=== PATIENT | male | born 1960 | race Caucasian/White ===

== ENCOUNTER 2020-11-19 05:46 | Observation (INO) ==
--- NOTE | 2020-10-28 14:46 | PAT Medication Instructions ---
Medication Instructions Date of Service October 28, 2020 Home Medications Medication Instructions Recorded metoprolol tartrate 25 mg tablet 25 mg PO BID #180 tab 12/17/19 budesonide-formoterol HFA 160 1 puff INHALATION BID #10.2 g 10/05/20 mcg-4.5 mcg/actuation aerosol inhaler metoprolol tartrate 25 mg tablet 25 mg PO BID aspirin 81 mg tablet,delayed release 81 mg PO QAM metformin 500 mg tablet 500 mg PO BID testosterone 1.62 % transdermal gel packet 1 packet TD QPM cholecalciferol (vitamin D3) 25 mcg (1,000 unit) capsule 50 mcg PO QAM omeprazole 20 mg capsule,delayed release 20 mg PO QAM fexofenadine 180 mg tablet 180 mg PO QAM budesonide-formoterol HFA 160 mcg-4.5 mcg/actuation aerosol inhaler 1 puff INHALATION BID albuterol sulfate 1 inh INHALATION QID PRN enalapril maleate 2.5 mg PO QAM escitalopram oxalate [Lexapro] 10 mg PO QAM simvastatin 40 mg PO HS ASK your prescriber and surgeon aspirin 81 mg tablet,delayed release 81 mg PO QAM DO NOT take the morning of surgery metformin 500 mg tablet 500 mg PO BID cholecalciferol (vitamin D3) 25 mcg (1,000 unit) capsule 50 mcg PO QAM fexofenadine 180 mg tablet 180 mg PO QAM enalapril maleate 2.5 mg PO QAM Take morning of surgery With a small sip of water, OTHERWISE NOTHING TO EAT OR DRINK AFTER MIDNIGHT: metoprolol tartrate 25 mg tablet 25 mg PO BID omeprazole 20 mg capsule,delayed release 20 mg PO QAM budesonide-formoterol HFA 160 mcg-4.5 mcg/actuation aerosol inhaler 1 puff INHALATION BID albuterol sulfate 1 inh INHALATION QID PRN (if needed) escitalopram oxalate [Lexapro] 10 mg PO QAM Take evening before surgery metoprolol tartrate 25 mg tablet 25 mg PO BID metformin 500 mg tablet 500 mg PO BID testosterone 1.62 % transdermal gel packet 1 packet TD QPM budesonide-formoterol HFA 160 mcg-4.5 mcg/actuation aerosol inhaler 1 puff INHALATION BID albuterol sulfate 1 inh INHALATION QID PRN (if needed) simvastatin 40 mg PO HS Other Notes If you have any questions please call us at [phone] or [phone] or [phone] or [phone]
--- NOTE | 2020-10-29 09:37 | Anesthesiology Consultation ---
Date of Service October 29, 2020 Assessment & Plan (1) Encounter for pre-operative examination: COVID Status: As of 10/29 assessment, patient denies travel to endemic area, or symptoms of COVID19. 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 Suspects he has had 3 COVID + patient interactions in the past week alone. Preoperative COVID19 testing to be completed on 11/11 (will be 8 days prior to surgery due to holiday, and patient unable to be here before noon on 11/12). Patient will have to work between his COVID test and surgery, pt educated on importance of strict adherence to PPE. Procaine ADR = nausea/vomiting after dental procedure as a child. Chart Review Chart Review: Acceptable Risk for Surgery and Patient seen in Pre Admission Testing Teaching & Discussion Instructed NPO after midnight before surgery, except medications with 15 cc of water. Medication instructions provided according to the PAT guidelines. History Surgery Operation Date: 11/19/20 07:30 Proposed Procedures p Right Robotic Partial Nephrectomy Laparoscopic Assisted - Colton Mcclure MD Height/Weight Height: 5 ft 10 in Weight: 84 kg Allergies Allergy/AdvReac Type Severity Reaction Status Date / Time Penicillins Allergy Unknown rash Verified 10/28/20 13:13 procaine AdvReac Unknown nausea/vomi Verified 10/29/20 09:51 ting Medications Home Medications Medication Instructions Recorded Confirmed Last Taken metoprolol tartrate 25 mg tablet 25 mg PO BID #180 tab 12/17/19 10/28/20 Unknown aspirin 81 mg tablet,delayed 81 mg PO QAM tab 03/20/20 10/28/20 Unknown release metformin 500 mg tablet 500 mg PO BID #60 tab 03/20/20 10/28/20 Unknown testosterone 1.62 % (20.25 mg/1.25 1 packet TD QPM gm 03/20/20 10/28/20 Unknown gram) transdermal gel packet cholecalciferol (vitamin D3) 25 50 mcg PO QAM cap 07/06/20 10/28/20 Unknown mcg (1,000 unit) capsule omeprazole 20 mg capsule,delayed 20 mg PO QAM 07/06/20 10/28/20 Unknown release fexofenadine 180 mg tablet 180 mg PO QAM 09/04/20 10/28/20 Unknown budesonide-formoterol HFA 160 1 puff INHALATION BID #10.2 g 10/05/20 10/28/20 Unknown mcg-4.5 mcg/actuation aerosol inhaler albuterol sulfate 1 inh INHALATION QID PRN 10/28/20 10/28/20 Unknown enalapril maleate 2.5 mg PO QAM 10/28/20 10/28/20 Unknown escitalopram oxalate [Lexapro] 10 mg PO QAM 10/28/20 10/28/20 Unknown simvastatin 40 mg PO HS 10/28/20 10/28/20 Unknown Past Medical History Medical History (Updated 10/29/20 @ 10:18 by Rivera Hicks) Asthma Symbicort BID, albuterol use very rare since starting symbicort, 3x in the past few months and only with a lot of exertion. Atherosclerotic heart disease of [place] coronary artery with other forms of angina pectoris Mild LAD disease noted on 2012 heart cath Depression COVARRUBIAS (dyspnea on exertion) GERD (gastroesophageal reflux disease) Hearing deficit BL BROWN History of atypical migraine HTN (hypertension) Hyperlipidemia IBS (irritable bowel syndrome) Insomnia Osteoarthritis Prediabetes Renal mass Exercise / Class Metabolic Activity II 4-5 Yardwork/Stairs/Walk up hill (No SOB or chest pain with 1 FOS unless running, very active as a heat treat puller) Past Family History Family History Father Acute myocardial infarction Pneumonia Mother Anxiety Hyperlipidemia Hyperthyroidism Grandfather Acute myocardial infarction Aunt Progressive muscular dystrophy Grandmother Type 1 diabetes Past Surgical History Surgical History History of arthroscopy of left knee mult History of arthroscopy of right knee mult History of cardiac catheterization 2013 - [facility] - no stents/angioplasty - [place]/ [place] [facility] History of tonsillectomy Past Anesthesia History No Hx of Anesthesia Complications and No Family Hx of Anesthesia Complications History of PONV No Hx of PONV and No Hx of Motion Sickness Social History Smoking Status: Never smoker Do You Dip or Chew Tobacco: No Hx Alcohol Use: Yes Alcohol type: beer, wine and hard liquor alcohol intake frequency: a few times a week Hx Substance Use: No substance use type: does not use Review of Systems Pt denies any recent chest pain, shortness of breath, palpitations, cough, fever, URI, or uncontrolled acid reflux (controlled with PPI). Physical Exam Vital Signs BP: 114/76 P: 57bpm SPO2: 97 % RA T: 98.3 F R: 16 ENMT Mouth: + dentures (partial upper) and + chipped teeth (lower incisors); no loose teeth Thyromental Distance: < 3.5 Finger Breadths (2.5-3) Mallampati Class: II Neck neck extension not limited Respiratory normal respiratory effort, lungs clear to auscultation Cardiovascular RRR, no murmur, no edema Vessels: no carotid bruit Testing Laboratory Results Blood Type O Negative 10/29/20 09:42 Antibody Screen NEGATIVE 10/29/20 09:42 10/20/20 WBC: 5.8 H/H: 15.3/46.2 PLATELETS: 189 SODIUM: 137 POTASSIUM: 4.8 CHLORIDE: 104 CO2: 27 BUN: 26 CREATININE: 1.40 GLUCOSE: 86 UA: trace ketones, otherwise negative. Culture showed no growth after 5 days. Electrocardiogram Date: 09/04/20 Findings: + NSR @ (60bpm) Left axis deviation. Moderate voltage criteria for LVH, may be normal variant. Nonspecific ST and T wave abnormality. Chest X-Ray Date: 10/20/20 Findings: + NAD Echocardiogram Date: 12/04/15 EF: 55-60% The LV is normal in size. Mild concentric LVH. LV systolic function is normal with no regional wall motion abnormalities noted. Borderline dilated aortic root and ascending aorta (3.8 cm). Other Testing CT Angiogram 09/04/20 No evidence of PE or aortic aneurysm/dissection.3.2 cm lesion upper pole right kidney may represent a complex cyst or solid mass. Renal sonogram suggested.
[2020-11-19] MEDS ORDERED: ceFAZolin 2000MG 2,000 MG/15 ML SYR IV SCH (06:00)
[2020-11-19] MEDS ORDERED: LACTATED RINGER'S 1,000 ML IV SCH (06:00)
[2020-11-19] MEDS ORDERED: ROCURONIUM BROMIDE 10 MG/ML 5 ML VIAL IV ONE ×8 (06:49→09:51)
[2020-11-19] MEDS ORDERED: ONDANSETRON INJ 2 MG/ML 2 ML VIAL ONE (06:49)
[2020-11-19] MEDS ORDERED: HYDROmorphone INJ 2 MG/ML SYR/VIAL ONE ×2 (06:49→09:48)
[2020-11-19] MEDS ORDERED: MIDAZOLAM HCL 1 MG/ML 2ML VIAL ONE (06:49)
[2020-11-19] MEDS ORDERED: LARYING-O-JET KIT (LTA) ONE (06:49)
[2020-11-19] MEDS ORDERED: DEXAMETHASONE SOD INJ 4 MG/ML VIAL ONE (06:49)
[2020-11-19] MEDS ORDERED: LIDOCAINE 2% 2 ML VIAL/AMP(20MG/ML) INFIL ONE (06:49)
[2020-11-19] MEDS ORDERED: PHENYLEPHRINE HCL 10 MG/ML VIAL ONE (06:49)
[2020-11-19] MEDS ORDERED: PROPOFOL IV EMULSION 10 MG/ML 20 ML VIAL IV ONE (06:49)
[2020-11-19] MEDS ORDERED: GLYCOPYRROLATE 0.2 MG/ML VIAL ONE (06:50)
[2020-11-19] MEDS ORDERED: NEOSTIGMINE METHYLSULFATE 5 MG/5 ML SYR ONE ×2 (06:50→09:50)
[2020-11-19] MEDS ORDERED: BUPIVACAINE 0.5 % 5 MG/1 ML MPF 30ML VIAL ONE (07:03)
--- NOTE | 2020-11-19 07:14 | History & Physical Bridge Note ---
Date of Service November 19, 2020 History & Physical Bridge Note I have examined the patient, reviewed the History & Physical and in the interval since the performance of the History & Physical I have noted the following changes of clinical significance: no changes noted
--- NOTE | 2020-11-19 07:25 | History & Physical Report ---
Date of Service November 19, 2020 Assessment & Plan (1) Renal mass: Right renal mass - plan for right robotic partial nephrectomy - we have discussed that if partial nephrectomy is not feasible, we will convert to a radical nephrectomy - risks, benefits, and expectations discussed History of Present Illness Primary Care Provider: Neal Petty MD Incidentally discovered right upper pole/posterior renal mass - here for possible nephrectomy, possible radical nephrectomy Allergies Allergy/AdvReac Type Severity Reaction Status Date / Time Penicillins Allergy Unknown rash Verified 11/19/20 05:58 procaine AdvReac Unknown nausea/vomi Verified 11/19/20 05:58 ting Home Medications Medication Instructions Recorded Confirmed Type metoprolol tartrate 25 mg tablet 25 mg PO BID #180 tab 12/17/19 11/19/20 Rx aspirin 81 mg tablet,delayed 81 mg PO QAM tab 03/20/20 11/19/20 History release metformin 500 mg tablet 500 mg PO BID #60 tab 03/20/20 11/19/20 History testosterone 1.62 % (20.25 mg/1.25 1 packet TD QPM gm 03/20/20 11/19/20 History gram) transdermal gel packet cholecalciferol (vitamin D3) 25 50 mcg PO QAM cap 07/06/20 11/19/20 History mcg (1,000 unit) capsule omeprazole 20 mg capsule,delayed 20 mg PO QAM 07/06/20 11/19/20 History release fexofenadine 180 mg tablet 180 mg PO QAM 09/04/20 11/19/20 History budesonide-formoterol HFA 160 1 puff INHALATION BID #10.2 g 10/05/20 11/19/20 Rx mcg-4.5 mcg/actuation aerosol inhaler albuterol sulfate 1 inh INHALATION QID PRN 10/28/20 11/19/20 History enalapril maleate 2.5 mg PO QAM 10/28/20 11/19/20 History escitalopram oxalate [Lexapro] 10 mg PO QAM 10/28/20 11/19/20 History simvastatin 40 mg tablet 40 mg PO HS #90 tab 11/11/20 11/19/20 Rx Past Med/Surg History Medical History Asthma Symbicort BID, albuterol use very rare since starting symbicort, 3x in the past few months and only with a lot of exertion. Atherosclerotic heart disease of [place] coronary artery with other forms of angina pectoris Mild LAD disease noted on 2013 heart cath Depression COVARRUBIAS (dyspnea on exertion) GERD (gastroesophageal reflux disease) Hearing deficit BL BROWN History of atypical migraine HTN (hypertension) Hyperlipidemia IBS (irritable bowel syndrome) Insomnia Osteoarthritis Prediabetes Renal mass Surgical History History of arthroscopy of left knee mult History of arthroscopy of right knee mult History of cardiac catheterization [address] [facility] - no stents/angioplasty - [place] [facility] History of tonsillectomy Family History Father Acute myocardial infarction Pneumonia Mother Anxiety Hyperlipidemia Hyperthyroidism Grandfather Acute myocardial infarction Aunt Progressive muscular dystrophy Grandmother Type 1 diabetes Social History Smoking Status: Never smoker Second Hand Exposure: Yes (as a child); Do You Dip or Chew Tobacco: No; Tobacco Cessation Education Requested by Patient: No Hx Alcohol Use: Yes Alcohol type: beer, wine and hard liquor Hx Substance Use: No Preferred Language: Turkish Communication Ability: Effective Visual Impairment: Limited Hearing Ability: Use of Hearing Aid Head Of Design Required: No Beliefs That Will Affect Care: None marital status: Single Current Living Situation: Significant Other current occupational status: employed 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 [employer] Feels Safe at Home: Yes Safety Concerns: Feels Safe At This Time Childhood Exposure to Second-Hand Smoke: Yes caffeine: Yes Dental Care, Regularly: Yes Physical Activity Frequency: Daily Seatbelt Use: always Sunscreen Use: Yes Assistive Devices: Glasses and Hearing Aid - Bilateral Assistive Devices Comment: partial upper Review of Systems All systems reviewed & are unremarkable except as noted in HPI & below Physical Exam Constitutional: well developed and well nourished Neck: neck nontender Respiratory: normal respiratory effort; no respiratory distress and does not use accessory muscles Cardiovascular: Rate/Rhythm: regular rate Vessels: radial pulses present Extremities: no edema Gastrointestinal (Abdomen): Inspection/Auscultation: abdomen normal to inspection Percussion/Palpation: abdomen soft; abdomen nontender and no guarding Musculoskeletal: Head/Neck/Chest: normocephalic and head atraumatic Extremities: extremities normal to inspection Skin: no rashes and no lesions Trauma: no evidence of skin trauma Neurologic: awake; not obtunded Speech / Cognition: normal speech Motor/Sensory: no tremor Psychiatric: Orientation: alert and oriented x 3 Genitourinary: no CVA tenderness Lymphatic: no lymphadenopathy Results & Data ([facility]) Vital Signs (Past 12 Hours) Vital Signs Temp Pulse Resp BP Pulse Ox 11/19/20 06:18 36.4 C L 57 L 18 137/96 99
[2020-11-19] MEDS ORDERED: KETAMINE 50 MG/5 ML SYRINGE ONE (07:48)
[2020-11-19] MEDS ORDERED: ONDANSETRON INJ 2 MG/ML 2 ML VIAL IV PRN ×2 (08:13→14:14)
[2020-11-19] MEDS ORDERED: ATROPINE SULFATE 0.1 MG/ML 10ML SYR IV PRN (08:13)
[2020-11-19] MEDS ORDERED: HYDROmorphone INJ 1 MG/ML SYRINGE IV PRN (08:13)
[2020-11-19] MEDS ORDERED: fentaNYL citrate 100 MCG/2 ML VIAL IV PRN (08:13)
[2020-11-19] MEDS ORDERED: MEPERIDINE HCL 25 MG/ML CARP/VIAL IV PRN (08:13)
[2020-11-19] MEDS ORDERED: ePHEDrine sulfate 50 MG/ML AMP IV PRN (08:13)
[2020-11-19] MEDS ORDERED: PHENYLEPHRINE 100MCG/ML 5ML SYR IV PRN (08:13)
[2020-11-19] MEDS ORDERED: TISSEEL FIBRIN SEALANT 10ML TOP ONE (09:10)
[2020-11-19] MEDS ORDERED: FLOSEAL HEMOSTATIC MATRIX 10ML TOP ONE (09:10)
[2020-11-19] MEDS ORDERED: SURGICEL ABSORB HEMOSTAT 2IN X 14IN TOP ONE (09:10)
--- NOTE | 2020-11-19 11:13 | Operative Report ---
PG Post Operative Report Pre & Post Diagnosis Operation Date: 11/19/20 07:30 Pre-Op Diagnosis: Right Renal Mass Post-Op Diagnosis: Right Renal Mass I identified the patient and participated in the time-out.: Yes Procedure Operation Date: 11/19/20 07:30 Actual Procedures p Right Robotic Assisted Laparoscopic Radical Nephrectomy (Right) - Colton Mcclure MD Surgeon Abilio Mcclure MD Public Address System Installer Windy Ramires Estimated Blood Loss 25 Findings Consistent with Post-Op Diagnosis Specimens Right kidney Description of Procedure Patient was identified in the preoperative holding area, appropriate informed consents reviewed and completed and he was transported to the operating suite. Upon arrival he received appropriate preoperative antibiotics in the form of Ancef. He was placed in the left side down right side up lateral decubitus position and padded and braced in standard fashion. To begin the case I passed a Veress needle into the right upper quadrant and insufflated his abdomen to 15 mmHg. I then placed a subumbilical port12 mm Visiport utilizing a 0 degree laparoscope. Inspection revealed a healthy- appearing abdomen without any significant adhesive disease aside from some minor adhesions around the cecum. I placed an 8mm robotic port approximately 2 cm above the umbilicus and just lateral to the rectus border. Utilizing the 2 ports that were placed I did mobilize the adhesions from the cecum. I then proceeded to place 2 additional robotic ports, one approximately 8 cm cephalad and one approximately 8 cm caudal to the first robotic port. A 5 mm subxiphoid liver retraction port was placed as well. The robot was docked into begin the robotic portion of the case I incised the white line of [place] and started to medialize the colon. I immediately identified the duodenum which was kocherized. The IVC was visualized. Before continuing to dissect the vascular structures like mobilized the liver which had adhesive disease on the lateral border and on the inferior edge. He does have 1 liver hemangioma which was visualized. After him incising these adhesions I utilized my previously placed 5 mm liver retraction port to place a locking grasper and elevate the liver off of the kidney. I then turned my attention back to the IVC. I was able to identify the gonadal vein penetrating into the IVC just inferior to the location of the renal vein. I circumferentially dissected the renal vein and identified the renal artery immediately posterior to it. Of note there is a branch that protrudes anteriorly from the artery wrapping around the cephalad portion of the renal vein. This was entirely dissected. The posterior plane behind the kidney was entirely dissected elevating the kidney off of the underlying psoas muscle. Given the location of the tumor I then started to mobilize the lateral aspect of the kidney and superior aspect of the kidney. This initially was performed outside of Gerota's fascia but then I incised Gerota's fascia over the medial and anterior portion of the kidney. Fortunately the fat was not adherent to the underlying renal capsule and I was able to expose the entire anterior superior half of the kidney. As I continue to mobilize around the upper portion of the kidney I can identify the border of the renal mass. This came in close p roximity to the renal vasculature. I felt that further dissection of the kidney would be required before making a determination about feasibility of performing a partial nephrectomy versus radical nephrectomy. I in turn skeletonized the entire kidney removing all of Gerota's fascia. I was able to flip the kidney entirely so that I could visualize the posterior side of the kidney and hilar structures from the posterior. The mass was readily visible from both anterior and posterior approaches, the mass unfortunately abuts the renal vasculature and I felt that it was unsafe to perform a partial nephrectomy as I did not anticipate having adequate tissue remaining to be able to close the kidney. I did perform a laparoscopic ultrasound to confirm this. After this evaluation I elected to proceed with a radical nephrectomy as I had discussed with the patient was a possibility prior to surgery. A single staple load was utilized to control both artery and vein. There were no other remaining attachments of the kidney and I was able to remove the previously mobilized Gerota's fascia in addition to the kidney. These were removed through expansion of my lowest robotic port to approximately 8 cm. Hemostasis was excellent. Closure of the incisions occurred in multiple layers. Utilizing 0 Vicryl I reapproximated the transversalis followed by internal oblique followed by external oblique. The subumbilical port was closed with 0 Vicryl. All skin incisions were closed with 4-0 Monocryl and Dermabond. All incisions were infiltrated with half percent Marcaine. He was subsequently extubated and taken to the recovery room in stable condition. The kidney was passed off the table for pathological analysis. Windy Ramires assisted from incision to closure. There were no complications. I attest to the content of the Intraoperative Record and any orders documented therein. Any exceptions are noted below.
[2020-11-19 11:27] LABS: Basophils # (auto) 0.02 K/uL (0-0.2); Basophils % (auto) 0.2 %; Eosinophils # (auto) 0.15 K/uL (0-0.5); Eosinophils % (auto) 1.4 %; Hematocrit (blood only) 42.3 % (42-52); Hemoglobin 13.7 g/dL (14.0-18.0); Immature Granulocytes # (auto) 0.02 K/uL (0.00-0.02); Immature Granulocytes % (auto) 0.2 %; Lymphocytes # (auto) 2.02 K/uL (1.2-3.4); Mean Corpuscular Hemoglobin 32.2 pg (25-34); Mean Corpuscular Volume 99.3 fL (80-100); Mean Platelet Volume 10.7 fL (7.4-10.4); Monocytes # (auto) 0.45 K/uL (0.11-0.59); Monocytes % (auto) 4.2 %; Neutrophils # (auto) 7.95 K/uL (1.4-6.5); Platelet Count 230 K/uL (130-400); RDW Coefficient of Variation 14.5 % (11.5-14.5); RDW Standard Deviation 52.1 fL (36.4-46.3); Red Blood Count 4.26 M/uL (4.7-6.1); White Blood Count 10.61 K/uL (4.8-10.8)
[2020-11-19 11:28] LABS: Mean Corpuscular Hgb Conc 32.4 g/dL (32-36)
[2020-11-19 11:44] LABS: BUN Creatinine Ratio 13.2 (10-20); Calcium 8.5 mg/dl (8.5-10.1); Creatinine Clr Calc Pharmacy 59.9 ml/min; Est GFR (African American) 66.5; Est GFR (Non-African American) 57.4; Potassium 5.2 mmol/L (3.5-5.1)
--- NOTE | 2020-11-19 12:32 | Anesthesiology Progress Note ---
Date of Service November 19, 2020 Anesthesia Post Procedure Vital Signs Vital Signs: Temp Pulse Pulse Resp BP Pulse Ox 11/19/20 12:25 36.7 C 83 15 131/79 95 11/19/20 12:15 81 12 125/77 98 11/19/20 12:05 82 12 106/64 100 11/19/20 11:55 36.7 C 69 12 114/70 98 11/19/20 11:45 67 12 106/70 98 11/19/20 11:35 67 12 112/71 98 11/19/20 11:25 68 12 123/71 98 11/19/20 11:15 69 18 119/71 98 11/19/20 11:05 66 12 120/64 93 11/19/20 10:57 36.3 C L 62 13 114/58 L 99 11/19/20 06:18 36.4 C L 57 L 18 137/96 99 Transfer of Care Handoff Completed per policy Notes Mental Status: alert / awake / arousable Patient Amnestic to Procedure: Yes Nausea / Vomiting: adequately controlled Pain: adequately controlled Airway Patency, RR, SpO2: stable & adequate BP & HR: stable & adequate Hydration State: stable & adequate Anesthetic Complications: no major complications apparent and Pt Satisfied with anesthetic care
[2020-11-19] MEDS ORDERED: MoRPHine SULFATE 2 MG/ML CARP IV PRN (14:14)
[2020-11-19] MEDS ORDERED: ALBUTEROL HFA 8 GM INHALER INH PRN (14:14)
[2020-11-19] MEDS ORDERED: ACETAMINOPHEN 325 MG TAB PO PRN (14:14)
[2020-11-19] MEDS ORDERED: PHARMACY GLYCEMIC MGMT CONSULT PRN (14:23)
[2020-11-19] MEDS: LACTATED RINGER'S 1,000 ML IV SCH ×2 (14:33→21:03)
[2020-11-19] MEDS: MoRPHine SULFATE 2 MG/ML CARP IV PRN (14:34)
--- NOTE | 2020-11-19 15:27 | Pharmacy Report ---
Glycemic Control Consultation - Date of Service November 19, 2020 - Scope Scope: Glycemic Pharmacist consulted for glycemic control and to write orders per [facility] inpatient glycemic control protocol. - Objective Weight: 83.2 kg Accuchecks BSG (last 24hrs): 11/19/20 11:12 Glucose 127 H Laboratory Data (last 24hrs): 11/19/20 11:12 Potassium 5.2 H Carbon Dioxide 31 Anion Gap 2.0 L Creatinine 1.32 Est Cr Clr Drug Dosing 59.9 - Recent Pertinent Medications Outpatient Anti-diabetic Regimen: * metformin 500 mg BID * A1c = 6.3 % 02/24/2016 Risk Factors for Insulin Resistance: * Steroids: dexamethasone 8 mg intraop * Recent Surgery: POD 0 for nephrectomy * Diet: clear liquid - Assessment & Plan Assessment & Plan: ASSESSMENT: * Mr Pelayo is a 60 y/o M with a PMH of T2DM on one oral medication who presents for nephrectomy. Preop BSG was 127 mg/dL. * Patient received dexamethasone 8 mg IV intraop. * Give NPH 25 units (weight-based stress of 2) x 1 -- slightly less than 0.4 units/kg to cover steroid hyperglycemia. * Start weight-based stress of 3 Novolog. Overnight checks to ensure adequate BSG control. * Hold metformin in light of surgery. * HbA1C ordered. PLAN FOR INPATIENT GLYCEMIC CONTROL: * Holding outpatient oral diabetes medications * Basal insulin * NPH 25 units SQ x 1 * Bolus insulin * NovoLog per scale ACHS or Q6hrs while NPO * Goal Range: Low 110 mg/dL - High 140 mg/dL * Correction Factor: 20 mg/dL/unit * Nutritional / Prandial insulin per carb ratio of 1 unit per 6 grams CHO consumed * Please note that the plan above was derived based on current level of insulin resistance and hospital stress. These recommendations are appropriate for inpatient admission only. Plan of care upon discharge will need to be reassessed to avoid potential outpatient hypo/hyperglycemia. Thank you.
[2020-11-19] MEDS ORDERED: GLUCAGON FOR INJ 1 MG VIAL IM PRN (15:30)
[2020-11-19] MEDS ORDERED: GLUCOSE 40% GEL 15 GM TUBE PO PRN (15:30)
[2020-11-19] MEDS ORDERED: CARBOHYDRATES FOR HYPOGLYCEMIA PO PRN (15:30)
[2020-11-19] MEDS ORDERED: DEXTROSE 50% 50 ML SYRINGE IV PRN (15:30)
[2020-11-19] MEDS ORDERED: GLUCOSE 10 TABS/TUBE PO PRN (15:30)
[2020-11-19] MEDS: oxyCODONE HCL IR 5 MG TAB (IMMEDIATE RELEASE) PO PRN ×2 (16:10→19:41)
[2020-11-19] MEDS: ceFAZolin 2000MG 2,000 MG/15 ML SYR IV SCH (16:10)
[2020-11-19] MEDS ORDERED: NovoLIN-N (NPH) PER UNIT CHARGE SQ ONE (16:30)
[2020-11-19] MEDS: INSULIN ASPART 100 UNITS/ML 3 ML PEN SC SCH ×2 (18:05→21:00)
[2020-11-19] MEDS: HEPARIN SOD 5,000 UNIT/0.5 ML VIAL SQ SCH (20:59)
[2020-11-19] MEDS: SIMVASTATIN 40 MG TAB PO SCH (20:59)
[2020-11-19] MEDS: METOPROLOL TARTRATE 25 MG TAB PO SCH (20:59)
[2020-11-20] MEDS: ceFAZolin 2000MG 2,000 MG/15 ML SYR IV SCH (00:04)
[2020-11-20] MEDS: oxyCODONE HCL IR 5 MG TAB (IMMEDIATE RELEASE) PO PRN ×4 (00:07→19:28)
[2020-11-20] MEDS: DICLOFENAC SOD 0.1% OPH SOLN 2.5 ML BTL OPR PRN ×2 (00:15→07:54)
[2020-11-20] MEDS: LACTATED RINGER'S 1,000 ML IV SCH ×3 (00:49→17:51)
[2020-11-20] MEDS: INSULIN ASPART 100 UNITS/ML 3 ML PEN SC SCH ×6 (00:50→21:22)
[2020-11-20 07:18] LABS: Hematocrit (blood only) 37.9 % (42-52); Immature Granulocytes # (auto) 0.02 K/uL (0.00-0.02); Immature Granulocytes % (auto) 0.2 %; Lymphocytes % (auto) 7.9 %; Mean Corpuscular Hemoglobin 31.3 pg (25-34); Mean Corpuscular Hgb Conc 31.7 g/dL (32-36); Mean Platelet Volume 10.7 fL (7.4-10.4); Monocytes # (auto) 1.31 K/uL (0.11-0.59); Monocytes % (auto) 10.4 %; Neutrophils # (auto) 10.29 K/uL (1.4-6.5); Neutrophils % (auto) 81.5 %; Platelet Count 223 K/uL (130-400); RDW Coefficient of Variation 14.8 % (11.5-14.5); Red Blood Count 3.83 M/uL (4.7-6.1); White Blood Count 12.62 K/uL (4.8-10.8)
[2020-11-20 07:43] LABS: BUN Creatinine Ratio 12.4 (10-20); Calcium 8.9 mg/dl (8.5-10.1); Creatinine Clr Calc Pharmacy 41.4 ml/min; Est GFR (African American) 42.6; Est GFR (Non-African American) 36.7; Potassium 4.8 mmol/L (3.5-5.1)
[2020-11-20] MEDS: METOPROLOL TARTRATE 25 MG TAB PO SCH ×2 (07:54→19:31)
[2020-11-20] MEDS: FEXOFENADINE HCL 180 MG TAB PO SCH (07:55)
[2020-11-20] MEDS: ENALAPRIL MALEATE 5 MG TAB PO SCH (07:55)
[2020-11-20] MEDS: ESCITALOPRAM OXALATE 10 MG TAB PO SCH (07:56)
[2020-11-20] MEDS: CHOLECALCIFEROL 1,000 UNITS 25 MCG TAB PO SCH (07:56)
[2020-11-20] MEDS: HEPARIN SOD 5,000 UNIT/0.5 ML VIAL SQ SCH ×2 (07:56→19:31)
[2020-11-20] MEDS: ASPIRIN 81 MG ECTAB PO SCH (07:56)
[2020-11-20] MEDS: PANTOprazole 40 MG TAB PO SCH (07:56)
[2020-11-20] MEDS: FLUTICASONE/VILANTEROL 100/25MCG 14 PUFFS/INHALER INH SCH (07:57)
--- NOTE | 2020-11-20 13:27 | Urology Progress Note ---
Date of Service November 20, 2020 Assessment & Plan (1) Renal mass: POD1 s/p Radical Right nephrectomy for Right renal mass Advancing diet. Encouraging ambulation as well as IS. Patient having discomfort in back and shoulders and right upper quadrant. No other major issues. No BM/Flatus. Improving clinically. Plan to continue to monitor. Possibly discharge tomorrow if continues to improve. Admission and Anticipated Discharge Date Admission Date: November 19, 2020 Subjective Postop from urologic surgery. Patient has been tolerating well, but is having some pain and discomfort. Incisions have been mild sore. Having some abdominal distension/gas pains. Had tolerated catheter overnight. Has not had severe pain or uncontrollable pain. Patient has been ambulating. Has not had bowel movement or major change. No new nausea or vomiting. Had tolerated anesthesia without major problems Tolerated liquid diet postoperatively and advanced for lunch. Review of Systems Review of Systems: All systems reviewed & are unremarkable except as noted in HPI & below Physical Exam Physical Exam: General: Alert in no acute distress. HEENT: Normocephalic Atraumatic. Inspection normal. Cranial Nerves 2-12 Grossly intact. Normal inspection of face. Normal inspection of neck. Psychologic: Normal affect. Respiratory: Nonlabored. No use of accessory muscles. No tachypnea or dyspnea. Cardiovascular: No tachycardia Skin: [place] and Dry. No rashes or visible lesions. Extremities/Lymphatics: No edema Abdomen: Appropriately tender. Mild distended. No rebound or guarding. Wound: Clean, dry, covered. Results & Data ([facility]) Vital Signs (Past 12 Hours) Vital Signs Temp Pulse Resp BP Pulse Ox 11/20/20 11:42 36.9 C 67 16 127/81 92 11/20/20 07:45 37.0 C 70 16 120/75 95 11/20/20 02:57 36.7 C 72 18 108/64 92 PG Care Time/CCT Total # of Minutes Spent Total Time Spent with Patient: Total time spent is greater than 50% in coordination of care (as documented) at patient's floor/unit and/or counseling patient: Coding Level of Care Code 00705 Subseq Obs Care Lvl 2 Diagnoses Renal mass N28.89
[2020-11-20] MEDS: MoRPHine SULFATE 2 MG/ML CARP IV PRN ×2 (15:27→21:21)
--- NOTE | 2020-11-20 15:36 | Pharmacy Report ---
Pharmacy Glycemic Short Note 2 - Date of Service November 20, 2020 - Glycemic Short BSG Results (Last 24 hours): 11/19/20 11/19/20 11/20/20 17:28 20:46 00:04 Glucose POC Glucose 175 H 159 H 132 H 11/20/20 11/20/20 11/20/20 05:08 06:51 08:26 Glucose 94 POC Glucose 94 107 H 11/20/20 12:11 Glucose POC Glucose 96 OUTPATIENT ANTIDIABETIC REGIMEN: * metformin 500 mg BID * A1c = 6.3 % 02/24/2016 ASSESSMENT: * Renard is POD #1 s/p nephrectomy. He received 34 units of insulin yesterday (25 units of NPH, 9 units of Novolog) with excellent glycemic control. He received a one time dose of ross-op dexamethasone. * His insulin needs decreased significantly today since no further steroids have been given. * no further basal insulin needed * loosen novolog CF and CR PLAN FOR INPATIENT GLYCEMIC CONTROL: * Hold outpatient oral diabetes medications * Basal insulin * none * Bolus insulin * NovoLog per scale ACHS or Q6hrs while NPO * Goal Range: Low 110 mg/dL - High 140 mg/dL * Correction Factor: 25 mg/dL/unit * Nutritional / Prandial insulin per carb ratio of 1 unit per 10 grams CHO consumed
[2020-11-20] MEDS: SIMVASTATIN 40 MG TAB PO SCH (19:32)
[2020-11-21] MEDS: LACTATED RINGER'S 1,000 ML IV SCH (03:50)
[2020-11-21 05:57] LABS: Basophils # (auto) 0.02 K/uL (0-0.2); Basophils % (auto) 0.2 %; Eosinophils # (auto) 0.09 K/uL (0-0.5); Eosinophils % (auto) 1.1 %; Hematocrit (blood only) 33.3 % (42-52); Hemoglobin 10.8 g/dL (14.0-18.0); Immature Granulocytes # (auto) 0.01 K/uL (0.00-0.02); Immature Granulocytes % (auto) 0.1 %; Lymphocytes # (auto) 1.49 K/uL (1.2-3.4); Lymphocytes % (auto) 18.5 %; Mean Corpuscular Hgb Conc 32.4 g/dL (32-36); Mean Corpuscular Volume 98.8 fL (80-100); Mean Platelet Volume 10.5 fL (7.4-10.4); Monocytes # (auto) 0.92 K/uL (0.11-0.59); Monocytes % (auto) 11.4 %; Neutrophils # (auto) 5.52 K/uL (1.4-6.5); Neutrophils % (auto) 68.7 %; Platelet Count 190 K/uL (130-400); RDW Standard Deviation 54.3 fL (36.4-46.3); Red Blood Count 3.37 M/uL (4.7-6.1); White Blood Count 8.05 K/uL (4.8-10.8)
[2020-11-21 05:59] LABS: Estimated Average Glucose 131 mg/dl; Hemoglobin A1C 6.2 % (4.5-5.6)
[2020-11-21 06:27] LABS: BUN Creatinine Ratio 12.4 (10-20); Calcium 8.5 mg/dl (8.5-10.1); Est GFR (African American) 39.5; Est GFR (Non-African American) 34.1; Potassium 4.3 mmol/L (3.5-5.1)
[2020-11-21 08:00] VITALS: BP 148/88; PULSE 70; TEMP 97.9; O2SAT 95
[2020-11-21] MEDS: ENALAPRIL MALEATE 5 MG TAB PO SCH (09:42)
[2020-11-21] MEDS: FEXOFENADINE HCL 180 MG TAB PO SCH (09:42)
[2020-11-21] MEDS: PANTOprazole 40 MG TAB PO SCH (09:43)
[2020-11-21] MEDS: ASPIRIN 81 MG ECTAB PO SCH (09:43)
[2020-11-21] MEDS: METOPROLOL TARTRATE 25 MG TAB PO SCH (09:43)
[2020-11-21] MEDS: CHOLECALCIFEROL 1,000 UNITS 25 MCG TAB PO SCH (09:43)
[2020-11-21] MEDS: ESCITALOPRAM OXALATE 10 MG TAB PO SCH (09:43)
[2020-11-21] MEDS: HEPARIN SOD 5,000 UNIT/0.5 ML VIAL SQ SCH (09:44)
[2020-11-21] MEDS: INSULIN ASPART 100 UNITS/ML 3 ML PEN SC SCH (09:44)
[2020-11-21] MEDS: FLUTICASONE/VILANTEROL 100/25MCG 14 PUFFS/INHALER INH SCH (09:44)
--- NOTE | 2020-11-21 10:39 | Urology Progress Note ---
Date of Service November 21, 2020 Assessment & Plan (1) Renal mass: POD2 s/p Radical Right nephrectomy for Right renal mass Discussed diet. Encourage small frequent meals and hydration. Encouraging ambulation as well as IS. Patient having discomfort in back and shoulders and right upper quadrant. No other major issues. No BM/Flatus. Improving clinically. Plan to continue to monitor. Admission and Anticipated Discharge Date Admission Date: November 19, 2020 Subjective Postop day 2 from robotic urologic surgery. Patient has been tolerating well, but is having some pain and discomfort. Incisions have been mild sore. Having some abdominal distension/gas pains. Has not had severe pain or uncontrollable pain. Patient has been ambulating. Has not had bowel movement or major change. No new nausea or vomiting. Had tolerated anesthesia without major problems Tolerating small diet Review of Systems Review of Systems: All systems reviewed & are unremarkable except as noted in HPI & below Physical Exam Physical Exam: General: Alert in no acute distress. HEENT: Normocephalic Atraumatic. Inspection normal. Cranial Nerves 2-12 Grossly intact. Normal inspection of face. Normal inspection of neck. Psychologic: Normal affect. Respiratory: Nonlabored. No use of accessory muscles. No tachypnea or dyspnea. Cardiovascular: No tachycardia Skin: [place] and Dry. No rashes or visible lesions. Extremities/Lymphatics: No edema Abdomen: Appropriately tender. Mild distended. No rebound or guarding. Wound: Clean, dry, covered. Results & Data ([facility]) Vital Signs (Past 12 Hours) Vital Signs Temp Pulse Resp BP Pulse Ox 11/21/20 07:59 36.6 C 70 16 148/88 H 95 11/20/20 23:55 37.1 C 76 17 130/79 92 PG Care Time/CCT Total # of Minutes Spent Total Time Spent with Patient: Total time spent is greater than 50% in coordination of care (as documented) at patient's floor/unit and/or counseling patient: Coding Level of Care Code 42966 Subseq Hosp Care Lvl 2 Diagnoses Renal mass N28.89
[2020-11-21] MEDS: oxyCODONE HCL IR 5 MG TAB (IMMEDIATE RELEASE) PO PRN (12:44)
--- NOTE | 2020-11-23 08:49 | Discharge Summary ---
Date of Service November 23, 2020 Admission HPI Per Admitting Provider Incidentally discovered right upper pole/posterior renal mass - here for possible nephrectomy, possible radical nephrectomy Principal Diagnosis Renal mass Discharge Data Allergies Allergy/AdvReac Type Severity Reaction Status Date / Time Penicillins Allergy Unknown rash Verified 11/19/20 05:58 procaine AdvReac Unknown nausea/vomi Verified 11/19/20 05:58 ting Procedures Performed Operation Date: 11/19/20 07:30 Actual Procedures p Right Robotic Assisted Laparoscopic Radical Nephrectomy (Right) - Colton Mcclure MD Hospital Course (1) Renal mass: Admitted for surgical treatment of a right renal mass Details of the procedure as dictated previously in the operative report. In summary, he recovered appropriately. His Mena catheter was removed on the morning of day 1. He was ambulatory. His diet was advanced. Labs were all appropriate and he was discharged home in stable condition on the morning of postoperative day #2 Total Time Total Time Spent Total Time Spent (In Minutes): 15 Discharge Plan Discharge Items Patient Disposition: Home - Self-Care Reason For Visit: Right Renal Mass Discharge Diagnosis: Same Condition on Discharge: Good Activity: Per Instructions section Lifting: No more than 25 pounds Bathing Comment: Okay to shower. No baths/soaking Non-emergency contact: Urologist Call non-emergency contact if: you have any medication questions, your symptoms worsen, your pain is not controlled, your pain is worsening, your pain is unusual for you, your pain is concerning for you, you have a fever, your temperature is above 101.5, your wound has increased redness, your wound has increased drainage and your wound pain has increased Follow-up/Referrals: Neal Petty MD [Primary Care Provider] - Diet: Regular Addtl Attending Provider Instructions: Please take all medications as prescribed and keep follow-ups as scheduled. Please call our office at [phone] with any questions, concerns or need to reschedule appointments for any reason. We are happy to assist you. Please do not drive, drink alcohol or operate machinery while taking prescription pain medication. We recommend continuing a stool softener (i.e. Colace) to prevent constipation/straining for at least two weeks after your procedure. Some blood is to be expected in your urine as you heal, you may even see recurrences of blood in your urine for up to 4-6 months after your procedure. Drink plenty of fluids, avoid sexual or strenuous exercise and do not lift >25 pounds until your follow-up. No heavy lifting. Slowly increase activity. Walking and low impact activities are encouraged. Call [facility] at [phone] promptly if you experience: Fever of 101F or greater Pain thats not controlled with medicine Trouble urinating or inability to urinate Dark, bloody urine for more than 12 hours Pending Studies at Discharge: No Stand-Alone Forms: My [facility], Smoking Cessation Medications and DC Order Prescriptions: New oxycodone-acetaminophen [Percocet] 7.5-325 mg tablet 1 tab PO Q8H PRN (Reason: pain) Qty: 7 RF: 0 docusate sodium 100 mg capsule 100 mg PO BID Qty: 30 RF: 3 Continued metoprolol tartrate 25 mg tablet 25 mg PO BID Qty: 180 RF: 3 simvastatin 40 mg tablet 40 mg PO HS Qty: 90 RF: 3 testosterone 1.62 % (20.25 mg/1.25 gram) gel in packet 1 packet TD QPM RF: 0 aspirin 81 mg tablet,delayed release (DR/EC) 81 mg PO QAM RF: 0 metformin 500 mg tablet 500 mg PO BID Qty: 60 RF: 0 cholecalciferol (vitamin D3) 25 mcg (1,000 unit) capsule 50 mcg PO QAM RF: 0 omeprazole 20 mg capsule,delayed release(DR/EC) 20 mg PO QAM RF: 0 budesonide-formoterol [Symbicort] 160-4.5 mcg/actuation HFA aerosol inhaler 1 puff inhalation BID Qty: 10.2 RF: 0 fexofenadine 180 mg tablet 180 mg PO QAM RF: 0 albuterol sulfate 90 mcg/actuation Hfa Aerosol Inhaler 1 inh INHALATION QID PRN (Reason: sob) RF: 0 enalapril maleate 2.5 mg tablet 2.5 mg PO QAM RF: 0 escitalopram oxalate [Lexapro] 10 mg tablet 10 mg PO QAM RF: 0 Discharge Orders: Discharge Order (Routine); Ordered 11/21/20 Ordered By: Jaren Conn/Other Patient Handouts: Managing Type 2 Diabetes Admission Data Admit Date/Time: 11/19/20 11:04 Attending Provider: Colton Mcclure Admit Provider: Colton Mcclure Primary Care Provider: Neal Petty Other Interventions: Discharge Summary Assessment (RN) Last Done: 11/21/20 11:58 Coding Level of Care Code D/C Day Management <30 mins Diagnoses Renal mass N28.89
== END 2020-11-21 13:32 | disposition home or self-care (01) ==
LOC: ASU 05:46 → 3N 11:04 → INTOOBSV 11:04

== ENCOUNTER 2022-04-20 20:20 | Inpatient (IN) ==
--- NOTE | 2022-04-20 21:48 | Emergency Department Note ---
History of Present Illness General Chief complaint: Mental Health Evaluation Stated complaint: DEPRESSION Time Seen by Provider: 04/20/22 21:01 History of Present Illness Provider complaint: Mental health evaluation 61-year-old male presents emergency department for mental health evaluation. Patient reports he has been having increased anxiety and depression. He states that in July he lost his friend in a car accident and he was still responding. Patient states since then he has been having increasing anxiety and depression. 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 Patient was having suicidal ideation and driving recklessly. No access to any firearms. No drugs or alcohol. Home Medications Medication Instructions Recorded Confirmed Type aspirin 81 mg tablet,delayed 81 mg PO QAM tab 03/20/20 04/20/22 History release cholecalciferol (vitamin D3) 25 50 mcg PO QAM cap 07/06/20 04/20/22 History mcg (1,000 unit) capsule omeprazole 20 mg capsule,delayed 20 mg PO QAM 07/06/20 04/20/22 History release fexofenadine 180 mg tablet 180 mg PO QAM 09/04/20 04/20/22 History budesonide-formoterol HFA 160 1 puff INHALATION BID #10.2 g 10/05/20 04/20/22 Rx mcg-4.5 mcg/actuation aerosol inhaler (Symbicort) albuterol sulfate 90 mcg/actuation 1 inh INHALATION QID PRN 10/28/20 04/20/22 History aerosol inhaler testosterone 20.25 mg/1.25 gram 1 pump TOPICAL DAILY 01/04/21 04/20/22 History (1.62 %) transdermal gel pump (AndroGel) colchicine 0.6 mg tablet 0.6 mg PO BID PRN #30 tab 10/05/21 04/20/22 Rx atorvastatin 40 mg tablet 40 mg PO DAILY #90 tab 11/10/21 04/20/22 Rx metoprolol tartrate 25 mg tablet See Rx Instructions .ROUTE 01/10/22 04/20/22 Rx .COMPLEX #180 tab dutasteride 0.5 mg capsule 0.5 mg PO DAILY #90 cap 02/18/22 04/20/22 Rx tamsulosin 0.4 mg capsule 0.4 mg PO DAILY #90 cap 02/18/22 04/20/22 Rx calcitriol 0.25 mcg capsule 0.25 mcg PO .COMPLEX #24 cap 03/08/22 04/20/22 Rx escitalopram oxalate 10 mg tablet 15 mg PO DAILY #135 tab 04/20/22 04/20/22 Rx Allergies Allergy/AdvReac Type Severity Reaction Status Date / Time Penicillins Allergy Unknown rash Verified 04/20/22 16:51 procaine AdvReac Unknown nausea/vomi Verified 04/20/22 16:51 ting Past Med/Surg History Medical History Asthma Symbicort BID, albuterol use very rare since starting symbicort, 3x in the past few months and only with a lot of exertion. Atherosclerotic heart disease of [place] coronary artery with other forms of angina pectoris Mild LAD disease noted on 2013 heart cath Depression GERD (gastroesophageal reflux disease) Hearing deficit [place] History of atypical migraine HTN (hypertension) Hyperlipidemia IBS (irritable bowel syndrome) Insomnia Osteoarthritis Renal mass Surgical History History of arthroscopy of left knee mult History of arthroscopy of right knee mult History of cardiac catheterization 2013 - [facility] - no stents/angioplasty - follows w/ [place] cardio History of kidney surgery History of tonsillectomy Family History Father Acute myocardial infarction Pneumonia Myocardial infarction Mother Anxiety Hyperlipidemia Hyperthyroidism Grandfather Acute myocardial infarction Myocardial infarction Aunt Progressive muscular dystrophy Grandmother Type 1 diabetes Denies family history of Ovarian cancer Prostate cancer Breast cancer Lung cancer Colorectal cancer Stroke Social History Smoking Status: Never smoker Second Hand Exposure: Yes (as a child); Hx Alcohol Use: Yes Alcohol type: beer, wine and hard liquor Alcohol Intake Frequency: 2-3 x/Week Hx Substance Use: No Preferred Language: Italian Communication Ability: Effective Visual Impairment: Limited Hearing Ability: Use of Hearing Aid Film Writer Required: No Beliefs That Will Affect Care: None marital status: Single Current Living Situation: Significant Other current occupational status: employed current occupation: [employer] How many Children do You have: 0 Feels Safe at Home: Yes Childhood Exposure to Second-Hand Smoke: Yes caffeine: Yes Dental Care, Regularly: Yes Physical Activity Frequency: Daily Seatbelt Use: always Sunscreen Use: Yes Assistive Devices: Glasses Review of Systems A total of 10 systems reviewed and were otherwise negative Physical Exam Vital Signs Vital Signs - 24 hr 04/20/22 20:26 04/20/22 22:21 04/21/22 00:19 Temperature 36.3 C L Temperature Source Temporal Artery Scan Pulse Rate 73 Pulse Rate [Left] 52 L Respiratory Rate 16 20 Respiratory Effort / Characteristics Non-Labored Spontaneous Non-Labored Non-Labored Respiratory Depth Normal Normal Normal Blood Pressure 152/91 H Blood Pressure [Left Arm] 125/76 Blood Pressure Mean 111 Blood Pressure Mean [Left Arm] 92 Pulse Oximetry 98 96 Oxygen Delivery Method Room Air Room Air Sepsis Recent Fever Within 48 Hours No Sepsis New/Unexplained Change in Mental Status No Sepsis Action Taken by Nursing No Action Required Physical Exam GENERAL: He is oriented to person, place, and time. He appears well-developed and well-nourished. He does not appear distressed. HENT: Exam performed. - Head: Normocephalic and atraumatic. - Right Ear: External ear normal. No mastoid tenderness. - Left Ear: External ear normal. No mastoid tenderness. - Mouth/Throat: The oropharynx is clear and moist. No trismus in the jaw. No dental abscesses or uvula swelling. No oropharyngeal exudate or tonsillar abscesses. EYES: Conjunctivae and EOM are normal. Pupils are equal, round, and reactive to light. Right eye exhibits no discharge. Left eye exhibits no discharge. No scleral icterus. NECK: Normal range of motion. Neck supple. No JVD present. No spinous process tenderness present. No carotid bruit present. No rigidity. No tracheal deviation and normal range of motion present. No Brudzinski's sign and no Kernig's sign noted. CV: Normal rate, regular rhythm, normal heart sounds and intact distal pulses. There is no peripheral edema. Palpable radial pulses bue. PULM/CHEST: Effort normal and breath sounds normal. No respiratory distress. No stridor. He has no wheezes. He has no rales. - Chest Wall: He exhibits no tenderness. ABD: The abdomen is soft. Bowel sounds are normal. He has no distension. No mass is present. There is no tenderness. There is no rebound, no guarding, no Pena's sign and no tenderness at McBurney's point. Rovsig negative. MUSC/SKEL: Normal range of motion. There is no peripheral edema, tenderness or deformity. LYMPH: No cervical adenopathy. NEURO: He is alert and oriented to person, place, and time. He has normal strength. No cranial nerve deficit or sensory deficit. Coordination and gait normal. GCS eye subscore is 4. GCS verbal subscore is 5. GCS motor subscore is 6. Cerebellar tests wnl. SKIN: Skin is warm and dry. He is not diaphoretic. PSYCH: Patient appears anxious and depressed. Positive suicidal ideation. Course Course 2100: The patient was evaluated in room A8. A complete history and physical exam was performed 2299: Vital signs stable. Patient medically cleared. Awaiting psychiatric placement. Patient placement for patient at this time. 0: Vital signs stable. Still awaiting placement to inpatient psychiatric facility. Case signed out to Dr. Toribio Medical Decision Making Laboratory Data Result diagrams: 04/20/22 21:27 04/20/22 21:27 Lab Results 04/20/22 04/20/22 04/20/22 Range/Units 21:27 21:27 21:27 WBC 6.26 (4.8-10.8) K/uL RBC 4.10 L (4.7-6.1) M/uL Hgb 13.2 L (14.0-18.0) g/dL Hct 40.3 L (42-52) % MCV 98.3 (80-100) fL MCH 32.2 (25-34) pg MCHC 32.8 (32-36) g/dL RDW Std Deviation 51.9 H (36.4-46.3) fL RDW Coeff of Jordon 14.5 (11.5-14.5) % Plt Count 256 (130-400) K/uL MPV 10.4 (7.4-10.4) fL Immature Gran % (Auto) 0.3 % Neut % (Auto) 69.8 % Lymph % (Auto) 15.8 % [place] % (Auto) 12.8 % Eos % (Auto) 1.1 % Baso % (Auto) 0.2 % Neut # (Auto) 4.37 (1.4-6.5) K/uL Lymph # (Auto) 0.99 L (1.2-3.4) K/uL [place] # (Auto) 0.80 H (0.11-0.59) K/uL Eos # (Auto) 0.07 (0-0.5) K/uL Baso # (Auto) 0.01 (0-0.2) K/uL Immature Gran # (Auto) 0.02 (0.00-0.02) K/uL Sodium 141 (136-145) mmol/L Potassium 4.3 (3.5-5.1) mmol/L Chloride 110 H (98-107) mmol/L Carbon Dioxide 24 (21-32) mmol/L Anion Gap 7 (3-11) BUN 39 H (6-23) mg/dl Creatinine 1.87 H (0.6-1.4) mg/dl Est Cr Clr Drug Dosing 45.7 ml/min Est GFR ( Amer) 43.4 ml/min Est GFR (Non-Af Amer) 37.4 ml/min BUN/Creatinine Ratio 20.9 H (10-20) Glucose 121 H (70-99(Fasting)) mg/dl Calcium 8.8 (8.5-10.1) mg/dl Total Bilirubin 0.4 (0.2-1.0) mg/dl AST 20 (13-39) U/L ALT 25 (7-52) U/L Alkaline Phosphatase 78 (34-104) U/L Total Protein 6.5 (6.0-8.3) gm/dl Albumin 3.8 (3.4-5.0) gm/dl Globulin 2.7 (2.5-4.0) gm/dl Albumin/Globulin Ratio 1.4 (0.9-2) TSH 0.723 (0.300-4.500) uIu/ml Urine Color Urine Appearance (Clear) Urine pH (4.5-7.5) Ur Specific [place] (1.000-1.030) Urine Protein (Negative) Urine Glucose (UA) (Negative) Urine Ketones (Negative) Urine Blood (Negative) Urine Nitrite (Negative) Urine Bilirubin (Negative) Urine Urobilinogen (Negative) Ur Leukocyte Esterase (Negative) Salicylates (3.0-30) mg/dl Urine Opiates Screen (Neg) Ur Methadone, Qual (Neg) Acetaminophen (10-30) ug/ml Urine Barbiturates (Neg) Ur Phencyclidine (PCP) (Neg) U Amphetamin/Meth Scrn (Neg) MDMA (Ecstasy) Screen (Neg) U Benzodiazepines Scrn (Neg) Ur Cocaine Metabolite (Neg) U Marijuana (THC) Screen (Neg) Ethyl Alcohol mg/dL (<10.0) mg/dl SARS-CoV-2, RNA, NAAT (NEGATIVE) 04/20/22 04/20/22 04/20/22 Range/Units 21:27 21:27 21:27 WBC (4.8-10.8) K/uL RBC (4.7-6.1) M/uL Hgb (14.0-18.0) g/dL Hct (42-52) % MCV (80-100) fL MCH (25-34) pg MCHC (32-36) g/dL RDW Std Deviation (36.4-46.3) fL RDW Coeff of Jordon (11.5-14.5) % Plt Count (130-400) K/uL MPV (7.4-10.4) fL Immature Gran % (Auto) % Neut % (Auto) % Lymph % (Auto) % [place] % (Auto) % Eos % (Auto) % Baso % (Auto) % Neut # (Auto) (1.4-6.5) K/uL Lymph # (Auto) (1.2-3.4) K/uL [place] # (Auto) (0.11-0.59) K/uL Eos # (Auto) (0-0.5) K/uL Baso # (Auto) (0-0.2) K/uL Immature Gran # (Auto) (0.00-0.02) K/uL Sodium (136-145) mmol/L Potassium (3.5-5.1) mmol/L Chloride (98-107) mmol/L Carbon Dioxide (21-32) mmol/L Anion Gap (3-11) BUN (6-23) mg/dl Creatinine (0.6-1.4) mg/dl Est Cr Clr Drug Dosing ml/min Est GFR ( Amer) ml/min Est GFR (Non-Af Amer) ml/min BUN/Creatinine Ratio (10-20) Glucose (70-99(Fasting)) mg/dl Calcium (8.5-10.1) mg/dl Total Bilirubin (0.2-1.0) mg/dl AST (13-39) U/L ALT (7-52) U/L Alkaline Phosphatase (34-104) U/L Total Protein (6.0-8.3) gm/dl Albumin (3.4-5.0) gm/dl Globulin (2.5-4.0) gm/dl Albumin/Globulin Ratio (0.9-2) TSH (0.300-4.500) uIu/ml Urine Color Urine Appearance (Clear) Urine pH (4.5-7.5) Ur Specific [place] (1.000-1.030) Urine Protein (Negative) Urine Glucose (UA) (Negative) Urine Ketones (Negative) Urine Blood (Negative) Urine Nitrite (Negative) Urine Bilirubin (Negative) Urine Urobilinogen (Negative) Ur Leukocyte Esterase (Negative) Salicylates < 3.0 L (3.0-30) mg/dl Urine Opiates Screen (Neg) Ur Methadone, Qual (Neg) Acetaminophen < 3 L (10-30) ug/ml Urine Barbiturates (Neg) Ur Phencyclidine (PCP) (Neg) U Amphetamin/Meth Scrn (Neg) MDMA (Ecstasy) Screen (Neg) U Benzodiazepines Scrn (Neg) Ur Cocaine Metabolite (Neg) U Marijuana (THC) Screen (Neg) Ethyl Alcohol mg/dL < 10.0 (<10.0) mg/dl SARS-CoV-2, RNA, NAAT NEGATIVE (NEGATIVE) 04/20/22 04/20/22 Range/Units 23:00 23:00 WBC (4.8-10.8) K/uL RBC (4.7-6.1) M/uL Hgb (14.0-18.0) g/dL Hct (42-52) % MCV (80-100) fL MCH (25-34) pg MCHC (32-36) g/dL RDW Std Deviation (36.4-46.3) fL RDW Coeff of Jordon (11.5-14.5) % Plt Count (130-400) K/uL MPV (7.4-10.4) fL Immature Gran % (Auto) % Neut % (Auto) % Lymph % (Auto) % [place] % (Auto) % Eos % (Auto) % Baso % (Auto) % Neut # (Auto) (1.4-6.5) K/uL Lymph # (Auto) (1.2-3.4) K/uL [place] # (Auto) (0.11-0.59) K/uL Eos # (Auto) (0-0.5) K/uL Baso # (Auto) (0-0.2) K/uL Immature Gran # (Auto) (0.00-0.02) K/uL Sodium (136-145) mmol/L Potassium (3.5-5.1) mmol/L Chloride (98-107) mmol/L Carbon Dioxide (21-32) mmol/L Anion Gap (3-11) BUN (6-23) mg/dl Creatinine (0.6-1.4) mg/dl Est Cr Clr Drug Dosing ml/min Est GFR ( Amer) ml/min Est GFR (Non-Af Amer) ml/min BUN/Creatinine Ratio (10-20) Glucose (70-99(Fasting)) mg/dl Calcium (8.5-10.1) mg/dl Total Bilirubin (0.2-1.0) mg/dl AST (13-39) U/L ALT (7-52) U/L Alkaline Phosphatase (34-104) U/L Total Protein (6.0-8.3) gm/dl Albumin (3.4-5.0) gm/dl Globulin (2.5-4.0) gm/dl Albumin/Globulin Ratio (0.9-2) TSH (0.300-4.500) uIu/ml Urine Color Yellow Urine Appearance Clear (Clear) Urine pH 5.0 (4.5-7.5) Ur Specific [place] 1.022 (1.000-1.030) Urine Protein Negative (Negative) Urine Glucose (UA) Negative (Negative) Urine Ketones Negative (Negative) Urine Blood Negative (Negative) Urine Nitrite Negative (Negative) Urine Bilirubin Negative (Negative) Urine Urobilinogen Negative (Negative) Ur Leukocyte Esterase Negative (Negative) Salicylates (3.0-30) mg/dl Urine Opiates Screen Neg (Neg) Ur Methadone, Qual Neg (Neg) Acetaminophen (10-30) ug/ml Urine Barbiturates Neg (Neg) Ur Phencyclidine (PCP) Neg (Neg) U Amphetamin/Meth Scrn Neg (Neg) MDMA (Ecstasy) Screen Neg (Neg) U Benzodiazepines Scrn Neg (Neg) Ur Cocaine Metabolite Neg (Neg) U Marijuana (THC) Screen Neg (Neg) Ethyl Alcohol mg/dL (<10.0) mg/dl SARS-CoV-2, RNA, NAAT (NEGATIVE) MDM Narrative Observation note Indication: Psych eval/placement Patient, with CKD, diabetes, aortic aneurysm, renal cell carcinoma, right rotator cuff injury first seen at 2101 hrs and the observation time began at 2300 hrs and was necessary in order to have psych evaluation completed . Upon re-evaluation, [] hours of observation revealed that the patient should be []. Disposition date and time []. Impression & Plan Depression with suicidal ideation Discharge Plan Visit Data Chief Complaint: Mental Health Evaluation Stated Complaint: DEPRESSION ED Provider: Tanner Pittman Discharge Problem: Depression with suicidal ideation Patient Disposition: Still a Patient Forms Stand Alone Forms: [facility], Suicide Prevention Resources Prescriptions Prescriptions: No Action atorvastatin 40 mg tablet 40 mg PO DAILY Qty: 90 RF: 3 metoprolol tartrate 25 mg tablet See Rx Instructions .ROUTE .COMPLEX Qty: 180 RF: 3 escitalopram oxalate 10 mg tablet 15 mg PO DAILY Qty: 135 RF: 3 aspirin 81 mg tablet,delayed release (DR/EC) 81 mg PO QAM RF: 0 cholecalciferol (vitamin D3) 25 mcg (1,000 unit) capsule 50 mcg PO QAM RF: 0 colchicine 0.6 mg tablet 0.6 mg PO BID PRN (Reason: gout) Qty: 30 RF: 2 omeprazole 20 mg capsule,delayed release(DR/EC) 20 mg PO QAM RF: 0 testosterone [AndroGel] 20.25 mg/1.25 gram (1.62 %) gel in metered-dose pump 1 pump topical DAILY RF: 0 calcitriol 0.25 mcg capsule 0.25 mcg PO .COMPLEX Qty: 24 RF: 2 budesonide-formoterol [Symbicort] 160-4.5 mcg/actuation HFA aerosol inhaler 1 puff inhalation BID Qty: 10.2 RF: 0 fexofenadine 180 mg tablet 180 mg PO QAM RF: 0 tamsulosin 0.4 mg capsule 0.4 mg PO DAILY Qty: 90 RF: 3 dutasteride 0.5 mg capsule 0.5 mg PO DAILY Qty: 90 RF: 3 triamcinolone acetonide [Kenalog] 40 mg/mL suspension 40 mg intra-articular ONCE Qty: 1 RF: 0 albuterol sulfate 90 mcg/actuation Hfa Aerosol Inhaler 1 inh INHALATION QID PRN (Reason: sob) RF: 0 Referrals Referrals: Neal Petty MD [Primary Care Provider] -
[2022-04-20 21:55] LABS: Basophils # (auto) 0.01 K/uL (0-0.2); Basophils % (auto) 0.2 %; Eosinophils # (auto) 0.07 K/uL (0-0.5); Eosinophils % (auto) 1.1 %; Hematocrit (blood only) 40.3 % (42-52); Hemoglobin 13.2 g/dL (14.0-18.0); Immature Granulocytes # (auto) 0.02 K/uL (0.00-0.02); Immature Granulocytes % (auto) 0.3 %; Lymphocytes # (auto) 0.99 K/uL (1.2-3.4); Lymphocytes % (auto) 15.8 %; Mean Corpuscular Hemoglobin 32.2 pg (25-34); Mean Corpuscular Hgb Conc 32.8 g/dL (32-36); Mean Corpuscular Volume 98.3 fL (80-100); Mean Platelet Volume 10.4 fL (7.4-10.4); Monocytes % (auto) 12.8 %; Neutrophils # (auto) 4.37 K/uL (1.4-6.5); Neutrophils % (auto) 69.8 %; Platelet Count 256 K/uL (130-400); RDW Coefficient of Variation 14.5 % (11.5-14.5); RDW Standard Deviation 51.9 fL (36.4-46.3); White Blood Count 6.26 K/uL (4.8-10.8)
[2022-04-20 21:59] LABS: Acetaminophen < 3 ug/ml (10-30); Salicylate < 3.0 mg/dl (3.0-30)
[2022-04-20 22:00] LABS: Albumin Globulin Ratio 1.4 (0.9-2); Albumin Level 3.8 gm/dl (3.4-5.0); BUN Creatinine Ratio 20.9 (10-20); Bilirubin,Total 0.4 mg/dl (0.2-1.0); Calcium 8.8 mg/dl (8.5-10.1); Creatinine Clr Calc Pharmacy 45.7 ml/min; Est GFR (African American) 43.4 ml/min; Est GFR (Non-African American) 37.4 ml/min; Globulin 2.7 gm/dl (2.5-4.0); Potassium 4.3 mmol/L (3.5-5.1); Total Protein 6.5 gm/dl (6.0-8.3)
[2022-04-20 23:56] LABS: Amphetamines+Metham, Urine Neg (Neg); Barbiturates, Urine Neg (Neg); Benzodiazepine, Urine Neg (Neg); Cocaine, Urine Neg (Neg); MDMA (Ecstacy), Urine Neg (Neg); Methadone, Urine Neg (Neg); Opiate, Urine Neg (Neg); Phencyclidine, Urine Neg (Neg)
[2022-04-21 00:15] LABS: Appearance Urine Clear (Clear); Bilirubin Urine Negative (Negative); Blood Urine Negative (Negative); Color Urine Yellow; Glucose Urine UA Negative (Negative); Ketones Urine Negative (Negative); Leukocyte Esterase Urine Negative (Negative); Nitrite Urine Negative (Negative); Protein Urine Negative (Negative); Specific Gravity Urine 1.022 (1.000-1.030); Urobilinogen Urine Negative (Negative)
--- NOTE | 2022-04-21 02:17 | Emergency Department Note ---
ED Visit Note This case was signed out to me at change of shift awaiting bed placement. The patient has been accepted to [facility]. he is a voluntary psychiatric admission .
[2022-04-21] MEDS ORDERED: ACETAMINOPHEN 325 MG TAB PO PRN (03:23)
[2022-04-21] MEDS ORDERED: SODIUM CHLORIDE 0.65% NA SOLN 45 ML (OCEAN) PRN (03:23)
[2022-04-21] MEDS ORDERED: hydrOXYzine HCl 25 MG TAB PO PRN ×2 (03:23)
[2022-04-21] MEDS ORDERED: BISMUTH SUBSALICYLATE LIQD 236 ML PO PRN (03:23)
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
[2022-04-21] MEDS ORDERED: MIRTAZAPINE TAB 15 MG TAB PO PRN (15:00)
[2022-04-21] MEDS ORDERED: PANTOprazole 40 MG TAB PO PRN (15:06)
[2022-04-21] MEDS: ASPIRIN 81 MG ECTAB PO SCH (17:10)
[2022-04-21] MEDS: METOPROLOL TARTRATE 25 MG TAB PO SCH (21:16)
[2022-04-21] MEDS: ATORVASTATIN 40 MG TAB PO SCH (21:16)
[2022-04-22] MEDS: ASPIRIN 81 MG ECTAB PO SCH (08:37)
[2022-04-22] MEDS: CHOLECALCIFEROL 1,000 UNITS 25 MCG TAB PO SCH (08:38)
[2022-04-22] MEDS: ESCITALOPRAM OXALATE 20 MG TAB PO SCH (08:38)
[2022-04-22] MEDS: FEXOFENADINE HCL 180 MG TAB PO SCH (08:39)
[2022-04-22] MEDS: METOPROLOL TARTRATE 25 MG TAB PO SCH ×2 (08:40→21:07)
[2022-04-22] MEDS: FLUTICASONE/VILANTEROL 200/25MCG 14 PUFFS/INHALER INH SCH (08:40)
[2022-04-22] MEDS: TAMSULOSIN HCL 0.4 MG CAP PO SCH (08:40)
--- NOTE | 2022-04-22 08:56 | Psychiatric Progress Note ---
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 Diagnostically consistent with PTSD. The patient is deemed unstable and requires psychiatric hospitalization for diagnostic clarification, safety and stabilization, medication management and development of further coping skills. 04/22/22: Tolerating increased escitalopram well without any side effects. He's processing recent traumatic events and finding CBT strategies helpful. He consents to scheduling mirtazapine to see if this helps further with sleep. (1) Post traumatic stress disorder (PTSD): (2) Suicidal ideation: 04/22/22: Switch mirtazapine to scheduled at [facility]. Needs family meeting. Continue with other medications and tx plan. 04/21/22: The patient was admitted to the [facility] ([facility]) on q15 min checks (behavioral with suicide precautions) for safety. The patient will participate in group, recreational, and milieu therapies and will be offered additional individual and family sessions as clinically appropriate. -increase escitalopram to 20mg qd -mirtazapine 7.5 mg qhs prn for sleep -he's unsure about therapy but willing to consider this -continue other home medications Inventory Assets Strengths: good support from fiancee and friends, accepting of treatment process, resilient Needs: additional coping skills, outpatient therapy, medication adjustment, safety and stabilization Suicide Risk Level Suicide Risk Level: Moderate (q15 min suicide checks) (SI with risky behavior of speeding prior to admission but denies SI now and feels safe in the hospital, ongoing PTSD symptoms) Risk Factors Assessment Male: Yes : Yes Do You Have Access To A Gun?: No Health Problems: Yes Mental Health Diagnoses: Yes Substance Use Disorders: No Previous Attempt: No Family History of Suicide: No Previous Psychiatric Hospitalization: No Hopelessness: No Protective Factors Assessment Employed: Yes ([employer] - laid off) Stable Relationships: Yes Supportive Family: Yes Good Rapport with Provider: Yes Interval History Identifying Information MARICRUZ LAUREN is a 61-year-old man who currently lives in [facility] in [place] with his fiancee with no significant psychiatric history, and was admitted on 04/21/22 02:15 on a 201 voluntary commitment for SI with thoughts of crashing his car. Chief Complaint "I'm feeling good". Review of Systems Sleep Information Total Hours of Sleep: 6.5 Sleep Comments: pt on q-15 minute checks Meal Information Percent Meal Consumed - Breakfast: 100 Percent Meal Consumed - Lunch: 100 Percent Meal Consumed - Dinner: 100 Subjective Subjective Patient was seen & assessed and interval progress reviewed with treatment team nursing and social work. Reporting upbeat mood. States he still had awakenings last night but slept "better than I have been getting recently". No side effects from the escitalopram. Reviewed PTSD and therapy option. He would prefer to try medication alone and incorporating some of the coping skills he's learned here so far before considering therapy. Denies SI. Feels he is getting his humor back which he views as a good sign. Has been reading. Reflected on advice he's learned in the past and that he's come to recognize that anger won't solve anything and he's viewing the events of the investigation as leading him to coming to the hospital and that this is going to help him moving forward feel better. Discussed how he's using CBT skills to shift his thoughts about difficult circumstances and how this in turn can change attitudes and emotions related to difficult events. Physical Exam Psychiatric Orientation: alert and oriented x 3 Apperance: appropriately dressed and appropriately groomed Eye Contact: good eye contact Motor Behavior: no abnormal motor movements Speech: normal rate/rhythm/volume of speech Affect: euthymic affect Mood: no depressed mood, no anxious mood and no irritable mood Thought Process: + circumstantial thought process Thought Content: reality based without delusions Suicidal Thoughts: denies suicidal thoughts (had SI with thoughts of crashing his car prior to admission, denies current), denies suicidal plan and denies suicidal intent Homicidal Thoughts: denies homicidal thoughts Hallucinations: no auditory hallucinations and no visual hallucinations Cognition: recent memory grossly intact, remote memory grossly intact, attention grossly intact and language grossly intact Estimated Intelligence: consistent with education level Insight: + fair insight Judgement: + fair judgement Vital Signs (Past 24 Hours) Last Vital Signs Temp 36.7 C 04/22/22 06:49 Pulse 75 04/22/22 06:50 Resp 16 04/22/22 06:49 BP 132/93 04/22/22 06:50 Pulse Ox 96 04/21/22 00:19 Results & Data ([facility]) Current Inpatient Medications Current Inpatient Medications: Current Inpatient Medications Acetaminophen (Acetaminophen 325 Mg Tab) 650 mg PO Q4H PRN PRN Reason: Headache or Minor Fever Stop: 05/21/22 03:22 Aspirin (Aspirin 81 Mg Ectab) 81 mg PO QAM [facility] Stop: 05/21/22 14:59 Last Admin: 04/22/22 08:37 Dose: 81 mg Documented by: Atorvastatin Calcium (Atorvastatin 40 Mg Tab) 40 mg PO HS [facility] Stop: 05/21/22 21:59 Last Admin: 04/21/22 21:16 Dose: 40 mg Documented by: Bismuth Subsalicylate (Bismuth Subsalicylate Liqd 236 Ml) 15 ml PO PRN PRN PRN Reason: Loose Stool Stop: 05/21/22 03:22 Calcitriol (Calcitriol 0.25 Mcg Capsule) 0.25 mcg PO MoFr@0900 [facility] Stop: 05/22/22 08:59 Last Admin: 04/22/22 08:38 Dose: 0.25 mcg Documented by: Escitalopram Oxalate (Escitalopram Oxalate 20 Mg Tab) [facility] Stop: 05/22/22 08:59 Last Admin: 04/22/22 08:38 Dose: 20 mg Documented by: Fexofenadine HCl (Fexofenadine Hcl 180 Mg Tab) 180 [facility] Stop: 05/22/22 08:59 Last Admin: 04/22/22 08:39 Dose: 180 mg Documented by: Fluticasone/Vilanterol (Fluticasone/Vilanterol 200/25mcg 14 Puffs/Inhaler) 1 puffs INH DAILY [facility]; Protocol Stop: 05/22/22 08:59 Last Admin: 04/22/22 08:40 Dose: 1 puffs Documented by: Hydroxyzine HCl (Hydroxyzine Hcl 25 Mg Tab) 50 mg PO HSZ PRN PRN Reason: Insomnia Stop: 05/21/22 03:22 Hydroxyzine HCl (Hydroxyzine Hcl 25 Mg Tab) 25 mg PO Q4H PRN PRN Reason: Anxiety Stop: 05/21/22 03:22 Metoprolol Tartrate (Metoprolol Tartrate 25 Mg Tab) 25 mg PO BID [facility] Stop: 05/21/22 20:59 Last Admin: 04/22/22 08:40 Dose: 25 mg Documented by: Mirtazapine (Mirtazapine Tab 15 Mg Tab) 7.5 mg PO HS PRN PRN Reason: insomnia Stop: 05/21/22 21:59 Miscellaneous (Order Awaiting Action [Dutasteride 0.5 Mg Capsule]) 1 ea N/A QS [facility] Stop: 05/21/22 15:59 Last Admin: 04/22/22 08:37 Dose: Not Given Documented by: Pantoprazole Sodium (Pantoprazole 40 Mg Tab) 40 mg PO QAM PRN PRN Reason: Gastric Reflux Stop: 05/21/22 15:05 Sodium Chloride (Sodium Chloride 0.65% Na Soln 45 Ml ([place])) 1 - 2 sprays NA PRN PRN PRN Reason: Nasal Dryness/Congestion Stop: 05/21/22 03:22 Tamsulosin HCl (Tamsulosin Hcl 0.4 Mg Cap) 0.4 mg PO DAILY [facility] Stop: 05/22/22 08:59 Last Admin: 04/22/22 08:40 Dose: 0.4 mg Documented by: Vitamin D (Cholecalciferol 1,000 Units 25 Mcg Tab) 1,000 units PO QAM [facility] Stop: 05/22/22 08:59 Last Admin: 04/22/22 08:38 Dose: 1,000 units Documented by: Mental Health & Subst Abuse Tx Therapist Name of Therapist: None Pharmacist Aide Name of Pharmacist Aide: None Post Discharge Appointments Primary Care Physician Name Of Family Doctor: KORY- Dr. Neal Petty
[2022-04-22] MEDS ORDERED: CALCITRIOL 0.25 MCG CAPSULE PO SCH (09:00)
[2022-04-22] MEDS: ATORVASTATIN 40 MG TAB PO SCH (21:07)
[2022-04-22] MEDS ORDERED: MIRTAZAPINE TAB 15 MG TAB PO SCH (22:00)
[2022-04-23] MEDS: FLUTICASONE/VILANTEROL 200/25MCG 14 PUFFS/INHALER INH SCH (08:18)
[2022-04-23] MEDS: ASPIRIN 81 MG ECTAB PO SCH (08:20)
[2022-04-23] MEDS: CHOLECALCIFEROL 1,000 UNITS 25 MCG TAB PO SCH (08:20)
[2022-04-23] MEDS: ESCITALOPRAM OXALATE 20 MG TAB PO SCH (08:20)
[2022-04-23] MEDS: TAMSULOSIN HCL 0.4 MG CAP PO SCH (08:21)
[2022-04-23] MEDS: METOPROLOL TARTRATE 25 MG TAB PO SCH (08:21)
[2022-04-23] MEDS: FEXOFENADINE HCL 180 MG TAB PO SCH (08:21)
[2022-04-23] MEDS ORDERED: FINASTERIDE 5 MG TAB PO SCH (09:00)
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
== END 2022-04-23 13:19 | disposition home or self-care (01) | DRG 882 ==
LOC: ED 20:20 → 3S 04-21 02:15